=== PATIENT | female | born 1990 | race Caucasian/White ===

== ENCOUNTER 2019-01-28 11:29 | Day surgery (SDC) | payer OTHER ==
[2019-01-28] VITALS (15 sets, daily range): BP systolic 90–106; BP diastolic 46–64; PULSE 50–63; RESP 12–19; Ht 170.2 cm; Wt 76.4 kg
[~2019-01-28] VITALS: Ht 170.2 cm; Wt 76.4 kg
--- NOTE | 2019-01-28 09:17 | SIPON ---
Date/Time of Note Date/Time of Note DATE: 01/28/19 TIME: 09:17 Operative Report Preoperative Diagnosis dns Postoperative Diagnosis dns Operation/Procedure Performed stm Surgeon see signature line development assistant na Anesthesia: general Estimated blood loss: 10 - 50 ml's Transfusion Required none Specimen septal bone Grafts/Implants none Complications none KI DAVEY MD January 28, 2019 09:17
[2019-01-28] MEDS ORDERED: ROCURONIUM 50 MG INJ ONE (13:08)
[2019-01-28] MEDS ORDERED: NEOSTIGMINE 3 MG/3 ML SYRINGE ONE ×3 (13:08→14:16)
[2019-01-28] MEDS ORDERED: SUCCINYLCHOLINE CHLORIDE 100 MG/5 ML SYG IV ONE (13:08)
[2019-01-28] MEDS ORDERED: LIDOCAINE 2% (SDV) 5 ML INJ ONE (13:08)
[2019-01-28] MEDS ORDERED: PROPOFOL 20 ML ONE (13:08)
[2019-01-28] MEDS ORDERED: GLYCOPYRROLATE 0.4 MG INJ ONE ×2 (13:08→13:12)
--- NOTE | 2019-01-28 13:35 | HPN ---
Date/Time of Note Date/Time of Note DATE: 01/28/19 TIME: 13:35 Interval H&P Admission Note Pt. seen H&P reviewed: No system changes KI DAVEY MD January 28, 2019 13:35
[2019-01-28] MEDS ORDERED: LIDOCAINE 1%/EPI (1:100,000) (MDV) 20 ML ONE (13:41)
[2019-01-28] MEDS ORDERED: OXYMETAZOLINE 0.05% 15 ML NAS SPRAY NASAL ONE (13:41)
--- NOTE | 2019-01-28 13:44 | PREAC ---
Date/Time of Note Date/Time of Note DATE: 01/28/19 TIME: 13:42 Anesthesia Eval and Record Evaluation Time Pre-Procedure Interview DATE: 01/28/19 TIME: 13:42 Age 29 Sex female NPO: 8 hrs Preoperative diagnosis Deviated nasal septum, bilateral nasal turbinate hypertrophy Planned procedure Septoplasty, bilateral turbinate modification Past Medical History Past Medical History: Includes Recreational drugs: Marijuana Surgery & Anesthesia Issues No known issue Meds Anticoagulation: No Beta Cayetano within 24 hr: No Reason Beta Cayetano not given: Pt. not on B-Cayetano No Active Prescriptions or Reported Meds Meds reviewed: Yes Allergies Coded Allergies: No Known Allergy (Unverified , 01/28/19) Allergies Reviewed: Yes Labs/Studies Labs Reviewed: Reviewed by anesthesiologist test: Negative Pre-procedure Exam Last vitals Vital Signs Date Temp Pulse Resp B/P (MAP) Pulse Ox O2 O2 Flow FiO2 Time Delivery Rate 01/28/19 99.0 53 18 103/59 96 Room Air 12:37 (74) Airway: Adequate mouth opening Mallampati: Mallampati I Teeth: Normal Lung: Normal Heart: Normal ASA Physical Status ASA physical status: 2 Emergency: None Planned Anesthetic General/MAC: ETT Planned Pain Management Parenteral pain med Pre-operative Attestations Prior to commencing anesthesia and surgery, the patient was re-evaluated, there was verification of: *The patient's identity *The results of appropriate recent lab work and preoperative vital signs *The above evaluation not changing prior to induction *Anesthetic plan, risk benefits, alternative and complications discussed with patient/family; questions answered; patient/family understands, accepts and wishes to proceed. LANG FLOYD MD January 28, 2019 13:44
[2019-01-28] MEDS ORDERED: ONDANSETRON 4 MG INJ ONE (14:16)
[2019-01-28] MEDS ORDERED: METOCLOPRAMIDE 10 MG INJ ONE (14:17)
[2019-01-28] MEDS ORDERED: FENTAnyl 50 MCG/ML VIAL IV PRN ×3 (14:30)
[2019-01-28] MEDS ORDERED: HYDROmorphONE 1 MG/5 ML IV SYRINGE IV PRN ×3 (14:30)
[2019-01-28] MEDS ORDERED: ONDANSETRON 4 MG INJ IV PRN (14:30)
[2019-01-28] MEDS ORDERED: MIDAZOLAM 1 MG/ML 2 ML INJ IV PRN (14:30)
[2019-01-28] MEDS ORDERED: OXYCODONE/ACETAMINOPHEN (5/325) TAB PO PRN ×2 (14:30)
[2019-01-28] MEDS ORDERED: DIPHENHYDRAMINE 50 MG INJ IV PRN (14:30)
[2019-01-28] MEDS ORDERED: METOCLOPRAMIDE 10 MG INJ IV PRN (14:30)
[2019-01-28] MEDS ORDERED: MEPERIDINE 25 MG INJ IV PRN (14:30)
--- NOTE | 2019-01-28 15:50 | PAC ---
Date/Time of Note Date/Time of Note DATE: 01/28/19 TIME: 15:49 Post-Anesthesia Notes Post-Anesthesia Note Last documented vital signs Vital Signs Date Temp Pulse Resp B/P (MAP) Pulse Ox O2 O2 Flow FiO2 Time Delivery Rate 01/28/19 55 18 92/55 (67) 94 Room Air 15:41 01/28/19 97.9 15:17 Activity: WNL Respiratory function: WNL Cardiovascular function: WNL Mental status: Baseline Pain reasonably controlled: Yes Hydration appropriate: Yes Nausea/Vomiting absent: Yes Comments BT: 98.4 LAGN FLOYD MD January 28, 2019 15:50
--- NOTE | 2019-01-28 21:07 | OPR ---
DATE OF OPERATION: 01/28/2019 PREOPERATIVE DIAGNOSES: Deviated septum, turbinate hypertrophy. POSTOPERATIVE DIAGNOSES: Deviated septum, turbinate hypertrophy. PROCEDURE: Septoplasty, bilateral inferior turbinate modification. SURGEON: Ki Moulton MD ANESTHESIA: General anesthesia. COMPLICATIONS: Without complications. ESTIMATED BLOOD LOSS: Minimal. DESCRIPTION OF PROCEDURE: After informed consent was obtained, the patient was brought to the operat ing room and placed in supine position. General anesthesia was then induced. The patient placed in the supine position. General anesthesia was then induced. Nose injected with 1% lidocaine 1:100,000 epinephrine and packed with Afrin soaked nasal gauze. After sufficient period of time elapsed, the patient was prepped and draped in sterile fashion. Left-sided hemitransfixion incision was made. Bi lateral mucoperichondrial flaps elevated. The osteocartilaginous junction was disarticulated. High cuts was made in the perpendicular plate of the ethmoid. Posterior bony defects removed using [place] vivi. Inferiorly, the cartilage was distributed from the maxillary crest and crest deviation was ana m esau using an osteotome. The septum was swung back into the midline and fixated to the spine using a [id number] Vicryl suture, and cartilage had been removed, was morselized and replaced. Hemitran sfixion incision was then closed using multiple chromic sutures. Whipstitch composed of plain gut wa s used to oppose septal flaps. Inferior turbinates were submucosally reduced, infractured and outfra ctured using Velez. Telfa packs placed bilaterally. The patient was then awakened and transferred in recovery room in stable condition. Dictated By: KI SHETH/CHRIS Conf#: [id number] DID#: [id number]
== END 2019-01-28 17:53 | disposition home or self-care (01) ==
LOC: SDS 11:29
PROVIDERS: ATTEND Otolaryngology
DX: J34.2 Deviated nasal septum (principal); J34.3 Hypertrophy of nasal turbinates; F12.90 Cannabis use, unspecified, uncomplicated
CPT/HCPCS: 30140; 30520; 88300; J2405; J2710; J2765; J3010; Z7512; Z7610